=== PATIENT | female | born 1955 | race Caucasian/White ===

== ENCOUNTER 2020-10-31 08:53 | Emergency (ER) | payer OTHER ==
[~2020-10-31] VITALS: Ht 177.8 cm; Wt 90.7 kg
[~2020-10-31 08:53] MED LIST: ACID CONTROL150 MG PO; ALLERGY SHOTS SC; ATARAX25 MG PO; CALCIUM 1,0001 EACH PO; CHLORTHALIDONE25 MG PO; COREG 6.25MG6.25 MG PO; EFFEXOR XR150 MG PO; FENOFIBRATE160 MG PO; FISH OIL PO; LASIX40 MG PO; LEVO-T137 MCG PO; PROAIR HFA8.5 GM PO; SYMBICORT 16010.2 GM PO; VITAMIN D35000 UNI1 PO; XOLAIR150 MG/1 M SC; ZYRTEC10 M3 PO
[2020-10-31] MEDS ORDERED: CEPHALEXIN500 MG PO (10:02)
[2020-10-31] MEDS ORDERED: BACITRACIN15 GM TOP (10:02)
== END 2020-10-31 13:00 | disposition home or self-care (01) ==
LOC: FER 08:53
DX: S52.121A Displaced fracture of head of right radius, initial encounter for closed fracture (principal); S52.131A Displaced fracture of neck of right radius, initial encounter for closed fracture; S81.812A Laceration without foreign body, left lower leg, initial encounter; S50.01XA Contusion of right elbow, initial encounter; S60.222A Contusion of left hand, initial encounter; I10 Essential (primary) hypertension; E66.9 Obesity, unspecified; Z23 Encounter for immunization; W18.09XA Striking against other object with subsequent fall, initial encounter; Y92.009 Unspecified place in unspecified non-institutional (private) residence as the place of occurrence of the external cause
CPT/HCPCS: 73080; 73130; 90471; 90715

== ENCOUNTER → 2020-12-07 | Day surgery (SDC) | payer OTHER ==
[~2020-12-07] VITALS: Ht 162.6 cm; Wt 121.1 kg
[~2020-12-07] MED LIST changes: +AZULFIDINE500 M1 PO; +BACITRACIN15 GM TOP; +CEPHALEXIN500 MG PO; +CRESTOR20 MG PO; +SINGULAIR10 MG PO; +SPIRIVA RESPIMAT4 G1 PO
[2020-12-07 13:11] LABS: HCT 42.1 % (37.0-47.0); HGB 13.6 g/dl (12.5-16.0); MCHC 32.3 g/dL (32.0-36.0); MCV 92.9 fL (78.0-100.0); MPV 9.7 fL (6.0-9.5); RBC 4.53 M/uL (4.20-5.40); RDW 13.7 % (11.5-14.0); WBC 6.5 K/uL (4.0-10.5)
[2020-12-07 13:32] LABS: BUN/CREAT RATIO (CALC) 34.2 RATIO; CREATININE 0.73 mg/dL (0.51-0.95); POTASSIUM 3.5 mmol/L (3.5-5.1)
== END | disposition home or self-care (01) ==
LOC: FAS 12:21
PROVIDERS: Anesthesiology; Obstetrics & Gynecology
DX: N95.0 Postmenopausal bleeding (principal); N84.0 Polyp of corpus uteri; N84.1 Polyp of cervix uteri; I10 Essential (primary) hypertension; E78.5 Hyperlipidemia, unspecified; E03.9 Hypothyroidism, unspecified; J45.909 Unspecified asthma, uncomplicated; E78.00 Pure hypercholesterolemia, unspecified; F41.9 Anxiety disorder, unspecified; F32.A Depression, unspecified; G47.30 Sleep apnea, unspecified; Z99.89 Dependence on other enabling machines and devices; Z79.899 Other long term (current) drug therapy; Z88.1 Allergy status to other antibiotic agents; Z88.2 Allergy status to sulfonamides; Z88.8 Allergy status to other drugs, medicaments and biological substances; Z80.0 Family history of malignant neoplasm of digestive organs
CPT/HCPCS: 36415; 80048; 86850; 86900; 86901; 93005; J1885; J2250; J2704; J3010; J3490; J7120

== ENCOUNTER 2021-11-07 13:23 | Emergency (ER) | payer OTHER ==
[2021-11-07 14:45] LABS: BASOPHIL 0.9 % (0-2); EOSINOPHIL 3.1 % (0-7); HCT 42.1 % (37.0-47.0); HGB 13.7 g/dl (12.5-16.0); LYMPHOCYTE 20.5 % (15-48); MCH 30.6 pg (25.0-31.0); MCHC 32.5 g/dL (32.0-36.0); MCV 94.2 fL (78.0-100.0); MONOCYTE 9.5 % (0-12); MPV 9.9 fL (6.0-9.5); NEUTROPHIL 65.9 % (41-80); NRBC 0; PLT 189 K/uL (150-400); RBC 4.47 M/uL (4.20-5.40); RDW 14.4 % (11.5-14.0)
[2021-11-07 14:48] LABS: BILIRUBIN NEGATIVE (NEGATIVE); BLOOD NEGATIVE Ery/uL (NEGATIVE); CLARITY CLEAR (CLEAR); COLOR YELLOW (YELLOW); GLUCOSE (U) NORMAL (NORMAL); LEUKOCYTES NEGATIVE Leu/uL (NEGATIVE); NITRITE NEGATIVE (NEGATIVE); PROTEIN NEGATIVE (NEGATIVE); SPECIFIC GRAVITY 1.015 (1.001-1.030); UROBILINOGEN 0.2 mg/dL (0.2-1.0)
[2021-11-07 15:26] LABS: ALBUMIN 3.2 g/dL (3.4-5.0); BILIRUBIN - TOTAL 0.3 mg/dL (0.2-1.0); BUN/CREAT RATIO (CALC) 35.8 RATIO; CREATININE 0.81 mg/dL (0.51-0.95); TOTAL PROTEIN 7.2 g/dL (6.4-8.2)
[2021-11-07 15:27] LABS: POTASSIUM 2.4 mmol/L (3.5-5.1)
[2021-11-07] MEDS ORDERED: POTASSIUM CHLO20 ME1 PO (17:58)
== END 2021-11-07 23:58 | disposition home or self-care (01) ==
LOC: FER 13:23
PROVIDERS: Emergency Medicine
DX: E87.6 Hypokalemia (principal); R60.0 Localized edema; R06.02 Shortness of breath; I10 Essential (primary) hypertension; Z88.2 Allergy status to sulfonamides
CPT/HCPCS: 36415; 36600; 71045; 71275; 80053; 81003; 82803; 83880; 84132; 85025; 85379; 93005; J3475; J3480; Q9967